=== PATIENT | male | born 1995 | race Caucasian/White ===

== ENCOUNTER 2021-07-04 16:42 | Emergency (ER) | payer SELFPAY ==
[~2021-07-04] VITALS: Ht 172.7 cm; Wt 69.4 kg
--- NOTE | 2021-07-04 16:50 | NUR ---
TO ER BED 14, [id number] VOMITING, FOUND ALTERED IN FIELD. AAOX4 NOW, PT STS HE WAS GIVEN 2 OXYCODONE, BG 150, AAOX4, BREATHING EVEN AND NON LABORED, CONNECTED TO MONITOR, AWAITING MD HUA
[2021-07-04] MEDS ORDERED: IV NS 0.9% 1,000 ML BAG IV ONE (17:00)
[2021-07-04] MEDS ORDERED: ONDANSETRON HCL/PF 4 MG/2 ML VIAL IVP ONE (17:00)
--- NOTE | 2021-07-04 17:41 | NUR ---
[facility] [phone]
[2021-07-04] MEDS ORDERED: ONDANSETRON HCL/PF 4 MG/2 ML VIAL ONE (17:43)
--- NOTE | 2021-07-04 17:45 | NUR ---
PATIENT AAOX4, PATIENT STATES HE'S FEELING BETTER AND DIDN'T WANT ANY TESTS DONE, MD AWARE
--- NOTE | 2021-07-04 17:55 | NUR ---
Patient left against medical advice of Dr Al
[2021-07-04 18:10] VITALS: BP 130/80
== END 2021-07-04 18:11 | disposition left against medical advice (07) ==
LOC: ER 16:44
DX: R11.2 Nausea with vomiting, unspecified (principal); R51.9 Headache, unspecified; F41.9 Anxiety disorder, unspecified; F32.A Depression, unspecified; Z60.2 Problems related to living alone
CPT/HCPCS: 70450; 99284; J7030; J2405